=== PATIENT | male | born 1970 | race African-American/Black ===

== ENCOUNTER 2021-06-05 10:22 | Emergency (ER) | payer OTHER ==
[~2021-06-05] VITALS: Ht 172.7 cm; Wt 75.0 kg
[2021-06-05] MEDS ORDERED: HYDROCODONE/ACETAMINOPHEN 5/325MG TABLET PO ONE ×2 (11:30→17:30)
[2021-06-05 12:56] LABS: BASOPHILS % 0.3 % (0.0-2.0); EOSINOPHILS % 0.1 % (0.0-5.0); HEMATOCRIT. 33.2 % (42.0-52.0); HEMOGLOBIN. 10.1 g/dL (14.0-18.0); LYMPHOCYTES % 8.4 % (20.0-50.0); MEAN CORPUSCULAR HEMOGLOBIN 23.4 pg (28.0-32.0); MEAN CORPUSCULAR VOLUME 76.7 fL (80.0-94.0); MEAN PLATELET VOLUME 6.7 fl (7.4-10.4); MONOCYTES % 5.7 % (2.0-8.0); NEUTROPHILS % 85.5 % (40.0-76.0); PLATELET 501 x1000/uL (130-400); RED BLOOD CELL COUNT 4.33 mill/uL (4.7-6.1); RED CELL DISTRIBUTION WIDTH 17.7 % (11.6-14.6)
[2021-06-05 13:02] LABS: CHLORIDE 106 mEq/L (98-107)
[2021-06-05] MEDS ORDERED: LIDOCAINE 5% PATCH TOP SCH (14:00)
[2021-06-05] MEDS ORDERED: LIDO700A15 TP (17:46)
[2021-06-05] MEDS ORDERED: HYDR-4001 MT ×2 (17:46→17:47)
[2021-06-05 18:10] VITALS: BP 137/79
== END 2021-06-05 18:15 | disposition home or self-care (01) ==
LOC: ER 10:26
DX: S22.32XA Fracture of one rib, left side, initial encounter for closed fracture (principal); D50.9 Iron deficiency anemia, unspecified; D72.829 Elevated white blood cell count, unspecified; Y08.89XA Assault by other specified means, initial encounter; Y93.89 Activity, other specified; Y92.89 Other specified places as the place of occurrence of the external cause
CPT/HCPCS: 36415; 71101; 80053; 83880; 84484; 85025; 93005; 99285

== ENCOUNTER 2025-02-17 13:05 | Emergency (ER) | payer OTHER ==
[~2025-02-17] VITALS: Ht 180.3 cm; Wt 64.0 kg
[~2025-02-17 13:05] MED LIST: HYDR-4001 MT; LIDO-53 TP
[2025-02-17 13:08] VITALS: BP 112/70; PULSE 94; RESP 18; TEMP 36.8; O2SAT 100
== END 2025-02-17 16:54 | disposition left against medical advice (07) ==
LOC: ER 13:05
DX: M54.50 Low back pain, unspecified (principal); M25.571 Pain in right ankle and joints of right foot; Z53.21 Procedure and treatment not carried out due to patient leaving prior to being seen by health care provider
CPT/HCPCS: 73610; 73630; 99284

== ENCOUNTER 2025-05-26 02:02 | Emergency (ER) | payer OTHER ==
[~2025-05-26] VITALS: Ht 177.8 cm; Wt 62.0 kg
[2025-05-26 02:22] VITALS: O2SAT 99
[2025-05-26] MEDS: ACETAMINOPHEN 500MG TABLET PO ONE (04:10)
[2025-05-26] MEDS: LIDOCAINE 5% PATCH TOP SCH (04:15)
[2025-05-26] MEDS ORDERED: NAPR-1176 MT (04:18)
[2025-05-26] MEDS ORDERED: LIDO-53 TP (04:18)
[2025-05-26 04:35] VITALS: BP 130/61; PULSE 89; RESP 18; TEMP 36.7; O2SAT 100
== END 2025-05-26 04:53 | disposition home or self-care (01) ==
LOC: ER 02:02
DX: G89.29 Other chronic pain (principal); M54.50 Low back pain, unspecified; F12.90 Cannabis use, unspecified, uncomplicated; Z79.899 Other long term (current) drug therapy
CPT/HCPCS: 99283